=== PATIENT | female | born 1965 | race Hispanic/Latino ===

== ENCOUNTER 2017-12-08 19:17 | Emergency (ER) | payer BC ==
[2017-12-08 19:23] VITALS: BMI 40.2
[2017-12-08 19:30] VITALS: TEMP 98.1; O2SAT 99
--- NOTE | 2017-12-08 20:13 | ED PDOC ---
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 Nephew stated he heard the noise when patient fell down. Nephew saw patient on prone position with convulsion, and bleeding from forehead. Nephew stated patient had a seizure for about a minute. Patient was drowsy for at least 10 minutes. Patient stated she feels well at this time, and she does not remember last Tetanus shot. Patient denies sob, cp, cough, fever, abdominal pain, neck pain, urinary symptoms, skin rash, dysarthria, dysphasia, diplopia, cms, n/v, or abnormal gait. Meds: Felbamate 4 tabs in am, and 3 tabs at qhs Briviact 1 tab in am, and 1 tab at qhs Adderal 1 tab at [facility] , only Vit. D Patient admits forgetting taking her seizures medication, "sometimes" Dr. Hannah- Neurologist, from [facility] Dr. Puckett- PMD (Anne Mac) Past Medical History - Provider Review Nursing Documentation Reviewed: Yes - Cardiac Hx Cardiac Disorders: No - Pulmonary Hx Respiratory Disorders: No - Neurological Hx Seizures: Yes Other/Comment: hx spinal meningitis - HEENT Hx HEENT Disorder: No - Renal Hx Renal Disorder: No - Endocrine/Metabolic Hx Endocrine Disorders: No - Hematological/Oncological Hx Blood Disorders: No - Integumentary Hx Dermatological Disorder: No - Musculoskeletal/Rheumatological Hx Musculoskeletal Disorders: No - Gastrointestinal Hx Gastrointestinal Disorders: No - Genitourinary/Gynecological Hx Genitourinary Disorders: No - Psychiatric Hx Psychophysiologic Disorder: No Hx Substance Use: No - Surgical History Other/Comment: VNS - Anesthesia Hx Anesthesia: Yes Hx Anesthesia Reactions: No Hx Malignant Hyperthermia: No <Anne Mac - Last Filed: 12/09/17 09:36> Family/Social History - Physician Review Nursing Documentation Reviewed: Yes Family/Social History: Other (noncontributory) Smoking Status: Never Smoked Hx Alcohol Use: No Hx Substance Use: No <Anne Mac - Last Filed: 12/09/17 09:36> Allergies/Home Meds <Anne Mac - Last Filed: 12/09/17 09:36> <SiddharthaShadi - Last Filed: 12/09/17 20:44> Allergies/Adverse Reactions: Allergies No Known Allergies Allergy (Verified 04/25/15 04:37) Review of Systems - Review of Systems Constitutional: Normal. absent: Fatigue, Weight Change, Fevers Eyes: Normal ENT: Normal Respiratory: Normal. absent: SOB, Cough Cardiovascular: Normal. absent: Chest Pain, Palpitations Gastrointestinal: Normal. absent: Abdominal Pain, Nausea, Vomiting Genitourinary Female: Normal. absent: Dysuria Musculoskeletal: Normal Skin: Laceration (left forehead and left eyebrow) Neurological: Headache, Seizure. absent: Dizziness, Focal Weakness, Gait Changes, Speech Changes, Facial Droop, Disequilibrium Endocrine: Normal Hemo/Lymphatic: Normal Psychiatric: Normal <Anne Mac - Last Filed: 12/09/17 09:36> Physical Exam Temperature: Afebrile Blood Pressure: Normal Pulse: Regular Respiratory Rate: Normal Appearance: Positive for: Well-Appearing, Non-Toxic, Comfortable Pain Distress: None Mental Status: Positive for: Alert and Oriented X 3 - Systems Exam Head: Present: Normocephalic, Laceration (Left forehead, and left infraorbital stellar laceration), Other (No raccoon sign. no crews sign) Pupils: Present: PERRL, Other (no raccoon sign. No crews sign) Extroacular Muscles: Present: EOMI. No: Entrapment Conjunctiva: Present: Normal Ears: Present: Normal, NORMAL TM, Other (no hemotymapnum) Mouth: Present: Moist Mucous Membranes Pharnyx: Present: Normal. No: ERYTHEMA, EXUDATE, TONSILS ENLARGED Neck: Present: Normal Range of Motion. No: Meningeal Signs, MIDLINE TENDERNESS , Paraspinal Tenderness Respiratory/Chest: Present: Clear to Auscultation, Good Air Exchange. No: Respiratory Distress, Accessory Muscle Use, Wheezes Cardiovascular: Present: Regular Rate and Rhythm, Normal S1, S2. No: Murmurs Abdomen: No: Tenderness, Distention, Peritoneal Signs Back: Present: Normal Inspection. No: CVA Tenderness Upper Extremity: Present: Normal Inspection, Normal ROM. No: Cyanosis, Edema Lower Extremity: Present: Normal Inspection, NORMAL PULSES, Normal ROM. No: Edema Neurological: Present: GCS=15, CN II-XII Intact, Speech Normal, Motor Func Grossly Intact, Normal Sensory Function, Normal Cerebellar Funct, Gait Normal, Memory Normal Skin: Present: Warm, Dry, Normal Color. No: Rashes Psychiatric: Present: Alert, Oriented x 3, Normal Insight, Normal Concentration <Anne Mac - Last Filed: 12/09/17 09:36> Vital Signs Temp Pulse Resp BP Pulse Ox 12/09/17 00:04 99 H 20 171/98 H 99 12/08/17 23:00 88 171/98 H 99 12/08/17 22:05 89 20 151/89 H 99 12/08/17 19:29 98.1 F 86 18 159/88 H 99 Medical Decision Making Re-evaluation Time: 21:47 Reassessment Condition: Unchanged <Anne Mac - Last Filed: 12/09/17 09:36> <Shadi Carl - Last Filed: 12/09/17 20:44> ED Course and Treatment: 12/08/17 20:23 I spoke with Marin Rai, Plastic Surgeon regarding patient facial laceration. He said he is happy for the call, and he will be here at the ED approx. 10 pm tonight. 12/08/17 21:45 Patient signed out to Dr. Carl at this time. Pending CT scan, and plastic surgeon coming at 10 pm. (Anne Mac) 12/08/17 22:00 CT Head pending. Case discussed with Dr. Fredi Rai, plastic surgery, who is aware and agrees with plan, will perform laceration repair in Emergency room. 12/09/17 22:40 Reviewed radiology, CT Head shows: Brain: Areas of encephalomalacia likely postsurgical in left anterior temporal lobe. No evidence of acute intracranial bleed. No mass lesion or mass effect. Bella/white matter differentiation is unremarkable. Cerebellum is unremarkable. Cisterns are unremarkable. Brainstem is unremarkable. No suprasellar mass. Ventricles: Unremarkable. No ventriculomegaly. Bones/joints: Left frontal craniotomy. Soft tissues: Large left frontal scalp soft tissue swelling and subcutaneous hematoma.No evidence of fracture. Sinuses: Unremarkable as visualized. No acute sinusitis. Mastoid air cells: Unremarkable as visualized. No mastoid effusion. Other findings: The IMPRESSION: Large left frontal scalp soft tissue swelling and subcutaneous hematoma.No evidence of fracture. No evidence of acute intracranial bleed. CT Maxillofacial shows: Bones/joints: No facial bone fractures are visualized. Left temporal craniotomy changes incidentally seen. Soft tissues: There is a laceration of the left frontal scalp soft tissue defect and small foreign body debris embedded in the subcutaneous tissues and within the dermis. Small hematoma left frontal scalp. Orbits: The orbits are normal. There is no evidence of retrobulbar hemorrhage. Sinuses: Mucosal thickening of the right maxillary sinus. No air-fluid levels. Brain: Left temporal encephalomalacia consistent with prior surgery. IMPRESSION: Soft tissue laceration with hematoma and swelling of the left frontal scalp. Right maxillary sinus mucosal disease likely chronic. No acute facial bone fractures. 12/09/17 22:50 Laceration repair performed by Dr. Rai. Pt tolerated procedure well. Pt advised to f/u with Dr. Rai outpt in his office. Patient was instructed to follow up with physician or return if symptoms worsen or new concerning symptoms arise. (Shadi Carl) - Lab Interpretations Lab Results: 12/08/17 20:34 12/08/17 20:34 Lab Results 12/08/17 20:34: Sodium 141, Potassium 4.3, Chloride 101, Carbon Dioxide 29, Anion Gap 16, BUN 14, Creatinine 0.7, Est GFR ( Amer) > 60, Est GFR (Non- Af Amer) > 60, Random Glucose 108, Calcium 9.6, Total Bilirubin 0.3, AST 31, ALT 28, Alkaline Phosphatase 65, Total Protein 7.9, Albumin 4.5, Globulin 3.4, Albumin/Globulin Ratio 1.3 12/08/17 20:34: WBC 5.6 D, RBC 4.11, Hgb 12.7, Hct 37.8, MCV 92.0, MCH 30.9, MCHC 33.6, RDW 12.2, Plt Count 264, MPV 9.0, Gran % 62.4, Lymph % (Auto) 29.2, Webster % (Auto) 6.8 H, Eos % (Auto) 1.4 L, Baso % (Auto) 0.2, Gran # 3.49, Lymph # (Auto) 1.6, Webster # (Auto) 0.4, Eos # (Auto) 0.1, Baso # (Auto) 0.01 - RAD Interpretation Radiology Orders: 12/08/17 20:13 HEAD W/O CONTRAST [CT] Stat MAXILLOFACIAL W/O CONTRAST [CT] Stat - Medication Orders Current Medication Orders: Discontinued Medications Cephalexin Monohydrate (Keflex) 500 mg PO STAT STA PRN Reason: Protocol Stop: 12/08/17 21:46 Last Admin: 12/08/17 23:03 Dose: 500 mg Tetanus/Reduced Diphtheria/Acell Pertussis (Boostrix Vaccine Inj) 0.5 ml IM .ONCE ONE Stop: 12/08/17 20:15 Last Admin: 12/08/17 23:54 Dose: 0.5 ml Immunization Registry Document 12/08/17 23:54 SS (Rec: 12/08/17 23:54 SS [id number]) Immunization Registry Consent Date 12/08/17 - PA / RECORDS MANAGEMENT ANALYST / Resident Statement JAYA has reviewed & agrees with the documentation as recorded. JAYA has examined the patient and agrees with the treatment plan. <Shadi Carl - Last Filed: 12/09/17 20:44> Disposition/Present on Arrival - Present on Arrival Any Indicators Present on Arrival: No History of DVT/PE: No History of Uncontrolled Diabetes: No Urinary Catheter: No History of Decub. Ulcer: No History Surgical Site Infection Following: None - Disposition Have Diagnosis and Disposition been Completed?: Yes Patient Plan: Discharge <Anne Mac - Last Filed: 12/09/17 09:36> - Disposition Disposition Time: 00:00 <Shadi Carl - Last Filed: 12/09/17 20:44> - Disposition Diagnosis: Facial laceration, Seizure Disposition: HOME/ ROUTINE Condition: IMPROVED Discharge Instructions (ExitCare): Laceration Repair, Seizures, Adult (DC) Prescriptions: Cephalexin [Keflex] 500 mg PO BID #14 capsule Referrals: Brody Puckett MD [Primary Care Provider] - Follow up with primary Forms: [email or web address] (Hungarian)
[2017-12-08] MEDS ORDERED: TDAP Vaccine 0.5 mL Syr IM ONE (20:14)
[2017-12-08 20:48] LABS: BASO # 0.01 K/mm3 (0.0-2.0); BASO % 0.2 % (0.0-3.0); EOS # 0.1 (0.0-0.7); EOS % 1.4 % (1.5-5.0); GRAN # 3.49 (1.4-6.5); GRAN % 62.4 % (50.0-68.0); HEMOGLOBIN 12.7 g/dL (12.0-16.0); LYMPH # 1.6 (1.2-3.4); LYMPH % 29.2 % (22.0-35.0); MEAN CORPUSCULAR HEMOGLOBIN 30.9 pg (25.0-35.0); MEAN CORPUSCULAR HGB CONC 33.6 g/dl (31.0-37.0); MONO # 0.4 (0.1-0.6); MONO % 6.8 % (1.0-6.0); RBC 4.11 10^6/uL (3.5-6.1); RED CELL DISTRIBUTION WIDTH 12.2 % (11.5-14.5); WHITE BLOOD COUNT 5.6 10^3/ul (4.5-11.0)
[2017-12-08 20:55] LABS: ALB/GLOB RATIO 1.3 (1.1-1.8); ALBUMIN 4.5 g/dL (3.0-4.8); ALT/SGPT 28 U/L (7-56); AST/SGOT 31 U/L (14-36); BLOOD UREA NITROGEN 14 mg/dL (7-21); CALCIUM 9.6 mg/dL (8.4-10.5); GFR AFRICAN-AMERICAN > 60; GFR NON-AFRICAN AMERICAN > 60
--- NOTE | 2017-12-08 22:43 | PCM.RRT ---
Addendum entered and electronically signed by Dario Mcmahan DO 12/09/17 05: 26: Vital Signs For SEPARATOR OPERATOR: BP:151/89 109HR 20 RR 99 Room Air Original Note: <Dairo Mcmahan - Last Filed: 12/09/17 01:17> SEPARATOR OPERATOR Nurse Assessment - Situation Date: 12/08/17 Time SEPARATOR OPERATOR was called: 22:00 SEPARATOR OPERATOR Location:: CT scan SEPARATOR OPERATOR Reason for Call: Change in Mental Status SEPARATOR OPERATOR Called By: Other Disciplines (physical therapy technician) - IV IV Inserted during SEPARATOR OPERATOR?: No - Neurological Status (Select all that apply): Disoriented Other (Please specify): Initially and later on became orientated times 3. - Head Additional Comments: 3 Centimeter laceration on the left forehead and Abrasion on left eyelid and left infra-orbital abrasion. No bleeding noted ( Injuries were sustained before coming to the E.R.) - Eyes Eye Exam: EOMI, Normal appearance, PERRL - Respiratory Exam Respiratory Exam: Clear to Ausculation Bilateral, NORMAL BREATHING PATTERN - Cardiovascular Exam Cardiovascular Exam: REGULAR RHYTHM, +S1, +S2 - GI/Abdominal Exam GI & Abdominal Exam: Soft, Normal Bowel Sounds - Neurological Exam Neurological Exam: Awake, CN II-XII Intact, Oriented x3 Additional exam: Gait not tested. Plan - Assessment of Findings&Treatment Plan 52 year old female with a medical history of complex partial seizures who while in CT scan began to shake her right arm and shake her head for one minute and subsequently became unresponsive. An SEPARATOR OPERATOR was called as a result by the waste minimization technician. Plan: Case endorsed to Emergency Department Physician Dr. Carl for further treatment and results of CT scan. <Laura Cisneros - Last Filed: 12/09/17 05:40> Attending/Attestation - Attestation I have personally seen and examined this patient.: Yes I have fully participated in the care of the patient.: Yes I have reviewed all pertinent clinical information, including history, physical exam and plan: Yes Notes (Text): 12/09/17 05:33 IMP: Seizure episode PLAN: Pt's seizure activity subsided, she was transferred back to the ER and endorsed to the ER MD.
[2017-12-09 00:04] VITALS: BP 171/98; PULSE 99; RESP 20
--- NOTE | 2017-12-09 08:57 | CT ---
PROCEDURE: CT HEAD WITHOUT CONTRAST. HISTORY: left facial pian s/p trauma COMPARISON: None available. TECHNIQUE: Axial computed tomography images were obtained through the head/brain without intravenous contrast. Radiation dose: Total exam DLP = mGy-cm. This CT exam was performed using one or more of the following dose reduction techniques: Automated exposure control, adjustment of the mA and/or kV according to patient size, and/or use of iterative reconstruction technique. FINDINGS: HEMORRHAGE: No intracranial hemorrhage. BRAIN: Left temporal encephalomalacia. No atrophy or chronic microvascular ischemic changes. VENTRICLES: Unremarkable. No hydrocephalus. CALVARIUM: Post surgical/traumatic changes left frontal bone. PARANASAL SINUSES: Unremarkable as visualized. No significant inflammatory changes. MASTOID AIR CELLS: Unremarkable as visualized. No inflammatory changes. OTHER FINDINGS: None. IMPRESSION: No acute hemorrhage.
--- NOTE | 2017-12-09 09:37 | CARD ---
APPROVED REPORT EKG Measurement Heart [id number] <Conclusion> Normal sinus rhythm Normal ECG
--- NOTE | 2017-12-09 10:22 | CT ---
PROCEDURE: CT MAXILLOFACIAL BONES WITHOUT CONTRAST HISTORY: left orbital pain s/p trauma COMPARISON: None TECHNIQUE: Contiguous axial CT images of the maxillofacial bones were obtained. Coronal and sagittal reformats were generated. Radiation dose: Total exam DLP = mGy-cm. This CT exam was performed using one or more of the following dose reduction techniques: Automated exposure control, adjustment of the mA and/or kV according to patient size, and/or use of iterative reconstruction technique. FINDINGS: NASAL BONES: Unremarkable. ORBITS: Left periorbital soft tissue swelling. PARANASAL SINUSES/ MASTOIDS: Clear. MAXILLA: Right maxillary sinus disease. MANDIBLE/ TEMPOROMANDIBULAR JOINTS: Unremarkable. SKULL BASE: Postsurgical changes along the left frontal bone and left temporal lobe. . TEMPORAL BONES: Middle ears and mastoid grossly unremarkable. OTHER FINDINGS: None. IMPRESSION: Left periorbital soft tissue swelling.
== END 2017-12-09 00:59 | disposition home or self-care (01) ==
LOC: ED 19:17
DX: S01.81XA Laceration without foreign body of other part of head, initial encounter (principal); W10.9XXA Fall (on) (from) unspecified stairs and steps, initial encounter; Y92.008 Other place in unspecified non-institutional (private) residence as the place of occurrence of the external cause; R56.9 Unspecified convulsions; Z23 Encounter for immunization